=== PATIENT | female | born 1955 | race Caucasian/White ===

== ENCOUNTER 2019-06-19 12:13 | Emergency (ER) | payer SELFPAY ==
[~2019-06-19] VITALS: Ht 149.9 cm; Wt 81.6 kg
[2019-06-19 14:33] VITALS: BP 139/83
== END 2019-06-19 13:30 | disposition left against medical advice (07) ==
LOC: ER 12:34
DX: M54.9 Dorsalgia, unspecified (principal); Z53.21 Procedure and treatment not carried out due to patient leaving prior to being seen by health care provider